=== PATIENT | female | born 1955 | race Caucasian/White ===

== ENCOUNTER 2017-07-13 08:52 | Inpatient (IN) | payer SELFPAY ==
[2017-07-13] MEDS ORDERED: DEXAMETHASONE 4 MG/ML VIAL IVP ONE (08:59)
[2017-07-13] MEDS ORDERED: ceFAZolin 2 GM/SWFI 2 GM/20 ML SYR IVP ONE ×2 (08:59→19:00)
[2017-07-13] MEDS ORDERED: ONDANSETRON 4 MG/2 ML VIAL IVP ONE (08:59)
[2017-07-13] MEDS ORDERED: LIDOCAINE 1% 2 ML INJ ID PRN (09:00)
[2017-07-13] MEDS ORDERED: LR 1,000 ML IV ONE (09:00)
[2017-07-13] MEDS ORDERED: BACITRACIN 50,000 UNITS/10 ML SYR IRR ONE (09:07)
[2017-07-13] MEDS ORDERED: THROMBIN (BOVINE) 20,000 UNIT VIAL TP ONE (09:07)
[2017-07-13] MEDS ORDERED: BUPIVACAINE 0.5% 30 ML SDV ONE (09:07)
[2017-07-13] MEDS ORDERED: CHLORHEXIDINE GLUC HIBICLENS 118 ML BTL TP ONE (09:09)
--- NOTE | 2017-07-13 10:05 | PDHPUP ---
History & Physical Update H&P update statement: This history and physical update is based on an assessment of the patient which was completed after admission or registration (within 24 hours), but prior to the surgery/procedure. H&P update: H&P reviewed & patient examined, no change in patient's condition since H&P completed (I met with the patient this morning and reviewed with her and her the risks and benefits of surgery, including permanent potential neurologic deficits, inability to resect the lesion fully, etc. All questions answered.)
[2017-07-13] MEDS ORDERED: MIDAZOLAM 2 MG/2 ML VIAL IVP ONE (10:22)
--- NOTE | 2017-07-13 10:23 | PDANEPAE ---
ANE Past Medical History - Cardiovascular History Hx Hypertension: No Hx Arrhythmias: No Hx Chest Pain: No Hx Coronary Artery / Peripheral Vascular Disease: No Hx CHF / Valvular Disease: No Hx Palpitations: No - Pulmonary History Hx COPD: No Hx Asthma/Reactive Airway Disease: No Hx Recent Upper Respiratory Infection: No Hx Oxygen in Use at Home: No Hx Sleep Apnea: No Sleep Apnea Screening Result - Last Documented: Negative - Neurologic History Hx Cerebrovascular Accident: No Hx Seizures: No Hx Dementia: No - Endocrine History Hx Diabetes: No - Renal History Hx Renal Disorders: No - Liver History Hx Hepatic Disorders: No - Neurological & Psychiatric Hx Hx Neurological and Psychiatric Disorders: Yes Neurological / Psychiatric History Comment: 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 wisdom teeth age 21 ANE Review of Systems Review of Systems: - Exercise capacity Exercise capacity: >=4 METS METS (RN): 4 METS ANE Patient History - Allergies Allergies/Adverse Reactions: aspirin Allergy (Verified 06/18/17 10:12) Other-Enter Comments - Home Medications Home Medications: Herbals/Supplements -Info Only 1 ea PO DAILY 06/11/17 [Last Taken Unknown] - NPO status NPO Since - Liquids (Date): 07/13/17 NPO Since - Liquids (Time): 07:15 NPO Since - Solids (Date): 07/12/17 NPO Since - Solids (Time): 19:30 - Anes Hx Anes Hx: no prior problems - Smoking Hx Smoking Status: Never smoked ANE Labs/Vital Signs - Vital Signs Blood Pressure: 146/91 Heart Rate: 81 Respiratory Rate: 16 O2 Sat (%): 96 Height: 165.1 cm Weight: 83.007 kg ANE Physical Exam - Airway Neck exam: FROM Mallampati Score: Class 2 Mouth exam: normal dental/mouth exam - Pulmonary Pulmonary: no respiratory distress, no rales or rhonchi, clear to auscultation - Cardiovascular Cardiovascular: regular rate and rhythym, no murmur, rub, or gallop - ASA Status ASA Status: II ANE Anesthesia Plan Anesthesia Plan: general endotracheal anesthesia
[2017-07-13] MEDS ORDERED: DEXMEDETOMIDINE/NS 4MCG/ML 50 ML BTL IV ONE ×2 (10:36→15:13)
[2017-07-13] MEDS ORDERED: PROPOFOL 200 MG/20 ML VIAL ONE (10:40)
[2017-07-13] MEDS ORDERED: KETAMINE 100 MG/10 ML SYR ONE (10:40)
[2017-07-13] MEDS ORDERED: ONDANSETRON 4 MG/2 ML VIAL ONE (10:41)
[2017-07-13] MEDS ORDERED: LIDOCAINE 2% 5 ML SDV ONE (10:41)
[2017-07-13] MEDS ORDERED: SUCCINYLCHOLINE CHLORIDE*ANESTHESIA ONLY*200 MG/10 ML SYR IVP ONE (10:41)
[2017-07-13] MEDS ORDERED: DEXAMETHASONE 4 MG/ML VIAL ONE (10:41)
[2017-07-13] MEDS ORDERED: BUPIVACAINE 0.25% 270 ML in PUMP SET 1 EA NB SCH (10:45)
[2017-07-13] MEDS ORDERED: BUPIVACAINE 0.25% 30 ML SDV ONE (10:55)
[2017-07-13] MEDS ORDERED: SURGIFLO MATRIX KIT WITH THROMBIN TP ONE (12:35)
[2017-07-13] MEDS ORDERED: diphenhydrAMINE 25 MG CAP PO PRN (12:58)
[2017-07-13] MEDS ORDERED: BISACODYL 10 MG SUPP PR PRN (12:58)
[2017-07-13] MEDS ORDERED: MAGNESIUM HYDROXIDE 30 ML UDCUP PO PRN (12:58)
[2017-07-13] MEDS ORDERED: LACTULOSE 20 GM/30 ML UDCUP PO PRN (12:58)
[2017-07-13] MEDS ORDERED: oxyCODONE IR 5 MG TAB PO PRN (13:02)
[2017-07-13] MEDS ORDERED: ceFAZolin 2 GM/DEXTROSE 100 ML IV SCH (14:00)
[2017-07-13] MEDS ORDERED: MEPERIDINE 25 MG/ML SYR IVP PRN (16:33)
[2017-07-13] MEDS ORDERED: PROMETHAZINE HCL 25 MG/ML INJ IVP PRN (16:33)
[2017-07-13] MEDS ORDERED: NALOXONE HCL 0.4 MG/ML INJ IVP PRN (16:33)
[2017-07-13] MEDS ORDERED: LR 500 ML IV PRN (16:33)
[2017-07-13] MEDS ORDERED: PHENYLEPHRINE HCL 100 MCG/ML SYR IVP PRN (16:33)
[2017-07-13] MEDS ORDERED: OXYCODONE/APAP 5/325 TAB PO PRN (16:33)
[2017-07-13] MEDS ORDERED: ONDANSETRON 4 MG/2 ML VIAL IVP PRN (16:33)
[2017-07-13] MEDS ORDERED: fentaNYL 100 MCG/2 ML INJ IVP PRN (16:33)
--- NOTE | 2017-07-13 17:15 | POSTANESTH ---
Post Anesthetic Evaluation Cardiovascular Status: Normal, Stable, Similar to Pre-Op Cond Respiratory Status: Normal, Stable, Similar to Pre-op Cond. Level of Consciousness/Mental Status: Can Participate in Eval, Moderately Sleepy Pain Control: Adequate, Prn Tx Ordered Nausea/Vomiting Control: Adequate, Prn Tx Ordered Complications Possibly Related to Anesthesia: None Noted
--- NOTE | 2017-07-13 17:19 | POSTOPPROG ---
Post Op Note Date of Operation: 07/13/17 Surgeon: Surinder Rodriguez Sales Support Associate: Dr Horan Anesthesiologist: Dr Huerta Anesthesia: GET(General Endotracheal) Pre-op Diagnosis: left S1 tumor Post-op Diagnosis: same Procedure: left S1 tumor open biopsy, decompression and left S1 foraminotomy Findings: per imaging Inf/Abcess present in the surg proc area at time of surgery?: No EBL: 100-500 Complications: small dural tear on the nerve root - repaired primarily Specimen(s): left S1 tumor was sent to Pathology for frozen and permanent
--- NOTE | 2017-07-13 17:20 | POSTOPPROG ---
Post Op Note Date of Operation: 07/13/17 Surgeon: Alexandru Horan (, FACS) Caustic Preparer: Surinder Rodriguez MD Anesthesiologist: Sterling Huerta MD Anesthesia: GET(General Endotracheal) Pre-op Diagnosis: S1 nerve sheath tumor Post-op Diagnosis: same Procedure: retroperitoneal Findings: large tumor arising from the S1 nerve sheath Inf/Abcess present in the surg proc area at time of surgery?: No EBL: 100-500 (400ml) Specimen(s): nerve sheath tumor
--- NOTE | 2017-07-13 17:23 | NEUSURGPN ---
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 and debulking with foraminotomy Subjective: no pain Objective: intact sensation to LE Bilaterally intact motor exam to LE bilaterally awake and alert Neuro Check Frequency: q4 hours Urinary Catheter in Place: Yes Urinary Catheter Indication: Surgical Requirement (patient to lie flat because of CSF leak) - Physician Patient Seen by : Michael Neurosurgery Physical Exam - Vitals, I&O, Labs I and O 07/12/17 07/13/17 07/14/17 05:59 05:59 05:59 Weight 83.007 kg Vital Signs Temp Pulse Resp BP Pulse Ox 36.8 C 81 16 146/91 H 96 07/13/17 09:19 07/13/17 10:23 07/13/17 10:23 07/13/17 10:23 07/13/17 10:23 ICD10 Worksheet Patient Problems: Problems Problem Status Onset 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
[2017-07-13] MEDS: ACETAMINOPHEN 500 MG TAB PO SCH ×2 (18:28→22:01)
[2017-07-13] MEDS: LR 1,000 ML IV SCH (18:36)
--- NOTE | 2017-07-13 19:16 | GOP ---
[f rep st] OPERATIVE REPORT DATE OF OPERATION: 07/13/2017 SURGEON: Surinder Rodriguez MD CO-SURGEON: Alexandru Horan MD COMPLICATIONS: Small dural tear was achieved on the S1 nerve root which was closed primarily with a 6-0 Prolene suture. PREOPERATIVE DIAGNOSIS: 1. 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 POSTOPERATIVE DIAGNOSIS: 1. 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 PROCEDURE PERFORMED: 1. Anterior retroperitoneal open biopsy of debulking of pre-sacral/sacral tumor. 2. Left-sided partial sacral bone resection with S1 ventral foraminotomy and nerve root decompression. 3. Use of intraoperative neuromonitoring. 4. Use of the operating microscope. FINDINGS: per imaging SPECIMENS: A frozen specimen was obtained from the lesion and additional tumor was sent to Pathology for permanent analysis. INDICATIONS: The patient is a 61-year-old woman who unfortunately has been suffering from left leg symptomatology. She had undergone fairly extensive OB/ HALL CLEANER workup and was found to have a fairly large left-sided tumor extending into the left S1 foramen and ventrally along the pre-sacral space. After discussion of risks, benefits, and treatment alternatives, we decided to proceed forth with surgery as described above. DESCRIPTION OF PROCEDURE: Patient was brought to the operating theater and underwent general endotracheal anesthesia without complications. She had Venodynes, AGA hose, and the appropriate lines placed by Anesthesia. Her arms were extended on the sides and the abdomen prepped and draped in the usual sterile surgical fashion. A time-out was completed per protocol and the patient received antibiotics within [address] Horan and his team will then dictate in a separate op report the anterior abdominal approach in a retroperitoneal manner to the left-sided tumor. Once the tumor was exposed, our team was called into the field. At this point, we were able to identify the lesion extending out from the ventral aspect of the left-sided S1 foramen and into the pre-sacral space. We were able to identify the L5 nerve laterally, as well as the iliav vein, which was tethered to the lateral aspect of the tumor and mass capsule. We used intraoperative neuromonitoring with stimulation to identify any active motor potentials and EMGs around the tumor capsule. During active stimulation, we did not notice any active stimulation of the lumbro-sacral plexus circumferentially. Using the lexis on the drill bit and Kerrison punches, we dissected out the tumor proximally into the sacrum with partial sacral bone resection and enlarging ventral foraminotomy. At this point, we verified the lack of stimulation with the neuromonitoring probe and then incised the sheath of the lesion on the ventral aspect where there was no active nerve stimulation or response. We dissected through several layers with the 11-blade until we were able to identify a plane around the tumor. We obtained a small piece of the tumor and sent it off for a frozen specimen. The microscope was brought into the field to assist with microscopic dissection and to maintain illumination and magnification. Using very careful microsurgical technique, we were able to circumferentially dissect the tumor from the capsule. Because of its shear size, however,we had to debulk the center of the tumor from the inside to reduce its size and pull the capsule away from the surrounding tissues. We followed the tumor proximally into the S1 foramen. We identified some nerve fascicles on the later and posterior wall of the tumor capsule that we preserved. The tumor appeared to be tethered to the S1 nerve, which was posterior and lateral to the tumor mass itself. While resecting the tumor, a small cut was made in the dural wall of the nerve that we had to close with a small 6-0 Prolene suture as best we could. There continued to be a very small amount of CSF still emanating from the repair. I did not feel we could place any more sutures because the dura at this point was very friable. One we truncated the tumor circumferentially, we placed a small piece of the capsule of the lesion around the nerve itself as well as the retroperitoneal fat to fill the space from the resection cavity. A small amount of DuraSeal was then placed over the nerve and tissues. There were no noted changes on neuromonitoring throughout this portion of the procedure. Please note te tumor resection was extremely difficulty and tedious, as well as challenging because of its size and proximity to the surrounding nerves and vessels. This necessitated the use of both specialists, both Dr Horan and myself , to work together to remove giovany mass carefully and without any complications. This surgery was greater then 50% more difficult than the average case because of these factors. At this point, Dr. Horan and his team will dictate in a separate op report the abdominal closure. Please note, the neuromonitoring was stable by the end of the case. /[id number]/MODL MTDD
[2017-07-13] MEDS: ONDANSETRON 4 MG/2 ML VIAL IVP PRN (20:18)
--- NOTE | 2017-07-13 20:22 | GOP ---
[f rep st] OPERATIVE REPORT DATE OF OPERATION: 07/13/2017 CO-SURGEONS: Alexandru Horan MD, FACS and Surinder Rodriguez MD (The technical difficulty and risk of this procedure required the full attention and skill of two surgeons to accomplish in a safe and timely fashion) ANESTHESIA: General endotracheal. ANESTHESIOLOGIST: Alexandru Huerta MD PREOPERATIVE DIAGNOSIS: S1 nerve sheath tumor. POSTOPERATIVE DIAGNOSIS: S1 nerve sheath tumor. PROCEDURE PERFORMED: Retroperitoneal exposure of anterior spine and deep pelvis for resection of nerve sheath tumor. FINDINGS: Uncomplicated exposure of the S1 nerve sheath tumor measuring approximately 4 x 4 x 4-1/2 cm, medial to the iliac vessels and posterior to the course of the ureter. Tumor excision to be dictated by Dr. Rodriguez. DESCRIPTION OF PROCEDURE: After informed consent was obtained, the patient was brought to the operating room and placed under general anesthesia. Hyde catheter was placed. Neuromonitoring leads were placed using sterile technique. The patient was then prepped and draped in the usual sterile fashion. Before proceeding, a time-out and identification of the patient was performed. Neuro-monitoring was performed throughout the procedure. 0.25% Marcaine was used to establish a regional field block, injecting approximately 20 cc of 0.25% Marcaine into the lateral abdominal wall on the left side at the level of the external oblique fascia. Subsequently, a curvilinear incision was made from just above the pubis curving anterior to the superior iliac crest up to the umbilicus. Dissection was carried through skin and subcutaneous tissues. The rectus sheath was incised where the external oblique fascia joined and a plane of dissection was entered in the retroperitoneum below the umbilicus. Dissection was carried out cephalad and the fascia was liberated from the posterior rectus sheath closer to the umbilicus allowing further mobilization of the retroperitoneal structures. The retroperitoneal fat plane was then followed into the pelvis and using combination of blunt dissection and Harmonic Scalpel, the small vessels were divided as they were encountered. The dissection revealed the course of the ureter which was encircled with a vessel loop and carefully protected in the course of dissection. The Omni-Tract retractor was used to facilitate exposure. As the retroperitoneal structures were mobilized, the pelvic brim was identified and the S1 nerve sheath tumor became palpable. The retroperitoneal fat was bluntly dissected away from the surface of the nerve sheath tumor and along the medial aspect the internal iliac vein was closely adherent to the outer capsule. This was slowly and carefully dissected away from the nerve sheath tumor and immediately posterior to this was the L5 nerve root. These structures were carefully identified and preserved in the course of dissection. Dr. Rodriguez then performed the extirpation of the nerve sheath tumor, to be dictated as a separate operative procedure note. A small dural leak was repaired with 6-0 Prolene suture. The wound was irrigated and aspirated. Subsequntly, the Omni-tract retractor was removed and the retroperitoneal fat was allowed to fill the expanded S1 lamina and cover the remaining S1 nerve root. Hemostasis appeared secure. All retractors were removed. The retroperitoneum lay nicely over the operative field. The ureter was returned to its anatomic position. The medial edge of the external oblique and internal oblique fascias were approximated to the rectus border in 2 layers with 2-0 Vicryl and 0 PDS suture. Subcutaneous tissues were closed with 2-0 Vicryl sutures. Skin was closed with 3-0 Monocryl suture in a subcuticular fashion. Bilateral On-Q catheters were tunneled into the subfascial plane and secured to the skin with Dermabond. These were charged with 0.25% Marcaine and to be attached to a continuous infusion pump at 2+2 mL/h. Sterile dressings were applied. The patient was returned extubated to the recovery room in satisfactory condition. Needle, sponge, and instrument counts were correct. Estimated blood loss for the entire case 400 mL as estimated by the suction canister. Complications, none. CO-SURGEON: Surinder Rodriguez MD /[id number]/MODL MTDD
[2017-07-13] MEDS: SENNOSIDES/DOCUSATE SODIUM TAB PO SCH (22:01)
[2017-07-13] MEDS: FAMOTIDINE 20 MG TAB PO SCH (22:01)
[2017-07-14] MEDS: LR 1,000 ML IV SCH (02:17)
[2017-07-14 04:57] LABS: % IMMATURE GRANULYOCYTES 0.5 % (0.0-1.1); ABSOLUTE IMMATURE GRANULOCYTES 0.06 10^3/uL (0.00-0.10); ADD DIFF? NO; ADD MORPH? NO; ADD SCAN? NO; ATYPICAL LYMPHOCYTE FLAG 0 (0-99); FRAGMENT RBC FLAG 0 (0-99); HEMOGLOBIN 12.1 g/dL (12.6-16.3); LEFT SHIFT FLG 0 (0-99); LIPEMIA HEMOLYSIS FLAG 90 (0-99); MEAN CELL HEMOGLOBIN 32.1 pg (27.9-34.1); MEAN CELL HEMOGLOBIN CONCENTR. 34.6 g/dL (32.4-36.7); MEAN CELL VOLUME 92.8 fL (81.5-99.8); MEAN PLATELET VOLUME 8.4 fL (8.7-11.7); PLATELET CLUMPS FLAG 0 (0-99); PLATELET COUNT 281 10^3/uL (150-400); RED BLOOD CELL COUNT 3.77 10^6/uL (4.18-5.33); RED CELL DISTRIBUTION WIDTH 13.2 % (11.5-15.2)
[2017-07-14 05:06] LABS: ANION GAP 7 mEq/L (8-16); CALCIUM 8.8 mg/dL (8.5-10.4); CARBON DIOXIDE 26 mEq/l (22-31); CHLORIDE 104 mEq/L (97-110); CREATININE 0.7 mg/dL (0.6-1.0); GLOMERULAR FILTRATION RATE > 60; GLUCOSE 113 mg/dL (70-100); POTASSIUM 4.3 mEq/L (3.5-5.2); SODIUM 137 mEq/L (134-144)
[2017-07-14] MEDS: ACETAMINOPHEN 500 MG TAB PO SCH ×3 (05:58→21:44)
[2017-07-14] MEDS: SENNOSIDES/DOCUSATE SODIUM TAB PO SCH ×2 (09:12→21:45)
[2017-07-14] MEDS: FAMOTIDINE 20 MG TAB PO SCH ×2 (09:12→21:44)
--- NOTE | 2017-07-14 09:19 | SOAPPROG ---
SOAP Progress Note Assessment/Plan: Assessment: s/p left S1 schwanomma excision/retroperitoneal approach doing well post op Plan: advance diet/continue bedrest until Sunday07/14/17 09:15 Subjective: denies significant pain Objective: Vital Signs Temp Pulse Resp BP Pulse Ox 36.8 C 92 14 127/78 H 99 07/14/17 04:19 07/14/17 04:19 07/14/17 04:19 07/14/17 04:19 07/14/17 04:19 Laboratory Results 07/14/17 04:45 07/14/17 04:45 07/13/17 07/14/17 07/15/17 05:59 05:59 05:59 Intake Total 1700 Output Total 1000 Balance 700 - Pending Discharge Pending Discharge Within 24 Hours: No Pending Discharge Within 48 Hours: No Physical Exam - Physical Exam General Appearance: no apparent distress Respiratory: lungs clear, decreased breath sounds Cardiac/Chest: regular rate, rhythm Abdomen: normal bowel sounds, non-tender, soft, other (dressing dry/intact, On- Q functioning well) Neuro/Psych: alert, normal mood/affect, oriented x 3 ICD10 Worksheet Patient Problems: Problems Problem Status Onset 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
--- NOTE | 2017-07-14 11:00 | NEUSURGPN ---
Date of Surgery: 07/13/17 Post Op Day: 1 Assessment/Plan: 61 yo female s/p anterior biopsy of S1 nerve sheath tumor - neuro stable - HOB flat till Sunday, then will raise HOB by 10 degrees every hour starting at 5am - pain control - postop MRI pending - path pending Subjective: Pain controlled, doing well this morning. No leg symptoms. No headache. Objective: Awake. Alert. Muscle strength full at 5/5 Sensation intact Incision with dressing Catheter Insertion Date: 07/13/17 Neurosurgery Physical Exam - Vitals, I&O, Labs I and O 07/13/17 07/14/17 07/15/17 05:59 05:59 05:59 Intake Total 1700 Output Total 1000 500 Balance 700 -500 Weight 83.007 kg Intake: Oral (ml) 500 IV Infused (ml) 1200 Lr 1,000 ml @ 100 mls/hr 1200 IV CONT APRIL Rx#: [id number] Output: Urine (ml) 600 500 Catheter 600 500 Estimated Blood Loss (ml) 400 Other: Intake Quantity Yes Sufficient Vital Signs Temp Pulse Resp BP Pulse Ox 36.6 C 80 16 126/71 H 94 07/14/17 09:16 07/14/17 09:16 07/14/17 09:16 07/14/17 09:16 07/14/17 09:16 Laboratory Results 07/14/17 04:45 07/14/17 04:45 ICD10 Worksheet Patient Problems: Problems Problem Status Onset 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
--- NOTE | 2017-07-14 11:06 | ASMTCMCOM ---
CM Note CM Note Notes: Reviewed chart and discussed with RN. Pt currently on flat bedrest til Sunday. Pt lives at home w/. CM will reassess on Sunday. Date Signed: 07/14/2017 11:05 AM Electronically Signed By:Tasia Pena RN
[2017-07-14] MEDS ORDERED: GADOBUTROL 10 ML VIAL IVP ONE (11:58)
[2017-07-14] MEDS: ENOXAPARIN 40 MG/0.4 ML SYR SC SCH (16:32)
[2017-07-15] MEDS: ACETAMINOPHEN 500 MG TAB PO SCH ×3 (05:11→20:49)
--- NOTE | 2017-07-15 07:34 | SOAPPROG ---
SOAP Progress Note Assessment/Plan: Assessment: s/p left S1 schwanomma excision/retroperitoneal approach doing well post op persistent S1 sensory symptoms Plan: trial of low does Gabapentin continue bedrest until Sunday07/14/17 09:15 07/15/17 07:35 Subjective: denies incisional pain/pain right posterior thigh tolerated diet advance Objective: Vital Signs Temp Pulse Resp BP Pulse Ox 36.9 C 83 14 134/84 H 97 07/15/17 04:00 07/15/17 04:00 07/15/17 04:00 07/15/17 04:00 07/15/17 04:00 Laboratory Results 07/14/17 04:45 07/14/17 04:45 07/14/17 07/15/17 07/16/17 05:59 05:59 05:59 Intake Total 1700 Output Total 1000 3425 Balance 700 -3425 MRI reviewed/post op fluid collection/residual tissue consistent with nerve sheath - Pending Discharge Pending Discharge Within 24 Hours: No Pending Discharge Within 48 Hours: No Physical Exam - Physical Exam General Appearance: no apparent distress Respiratory: normal breath sounds Cardiac/Chest: regular rate, rhythm Abdomen: normal bowel sounds, non-tender, soft, other (dressing/On-Q intact) ICD10 Worksheet Patient Problems: Problems Problem Status Onset 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
--- NOTE | 2017-07-15 09:26 | NEUSURGPN ---
Date of Surgery: 07/13/17 Post Op Day: 2 Assessment/Plan: 61 yo female s/p anterior biopsy of S1 nerve sheath tumor - neuro stable - HOB flat till Sunday, then will raise HOB by 10 degrees every hour starting at 5am - pain control, neurontin has been started - postop MRI completed- shows good resection - path pending Subjective: Having left gluteal pain. Objective: Awake. Alert. PERRL. EOMI Facial expression symmetrical Muscle strength full at 5/5 Sensation intact Catheter Insertion Date: 07/13/17 Neurosurgery Physical Exam - Vitals, I&O, Labs I and O 07/14/17 07/15/17 07/16/17 05:59 05:59 05:59 Intake Total 1700 Output Total 1000 3425 Balance 700 -3425 Weight 83.007 kg Intake: Oral (ml) 500 IV Infused (ml) 1200 Lr 1,000 ml @ 100 mls/hr 1200 IV CONT APRIL Rx#: [id number] Output: Urine (ml) 600 3425 Catheter 600 3425 Estimated Blood Loss (ml) 400 Other: Intake Quantity Yes Yes Sufficient Vital Signs Temp Pulse Resp BP Pulse Ox 36.8 C 84 16 132/87 H 97 07/15/17 08:00 07/15/17 08:00 07/15/17 08:00 07/15/17 08:00 07/15/17 08:00 Laboratory Results 07/14/17 04:45 07/14/17 04:45 ICD10 Worksheet Patient Problems: Problems Problem Status Onset 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
[2017-07-15] MEDS: GABAPENTIN 100 MG CAP PO SCH ×3 (10:30→20:49)
[2017-07-15] MEDS: SENNOSIDES/DOCUSATE SODIUM TAB PO SCH ×2 (10:31→20:49)
[2017-07-15] MEDS: ENOXAPARIN 40 MG/0.4 ML SYR SC SCH (10:31)
[2017-07-15] MEDS: FAMOTIDINE 20 MG TAB PO SCH ×2 (10:31→20:49)
[2017-07-15] MEDS: ONDANSETRON DISINTEGRATING 4 MG TAB PO PRN (14:12)
[2017-07-15] MEDS ORDERED: BUPIVACAINE 0.25% 270 ML in PUMP SET 1 EA NB SCH (22:00)
[2017-07-16 04:34] VITALS: RESP 16
--- NOTE | 2017-07-16 06:16 | SOAPPROG ---
SOAP Progress Note Assessment/Plan: Assessment: s/p left S1 schwanomma excision/retroperitoneal approach doing well post op Plan: continue On-Q w/ .25% bupivicaine continue bedrest until Sunday07/14/17 09:15 07/15/17 07:35 07/16/17 06:16 Subjective: resting comfortably/no flatus yet/mild headache Objective: Vital Signs Temp Pulse Resp BP Pulse Ox 36.9 C 83 16 123/84 H 93 07/16/17 04:00 07/16/17 04:00 07/16/17 04:00 07/16/17 04:00 07/16/17 04:00 Laboratory Results 07/14/17 04:45 07/14/17 04:45 07/15/17 07/16/17 07/17/17 05:59 05:59 05:59 Intake Total 350 Output Total 3425 2100 Balance -3425 -1750 Physical Exam - Physical Exam General Appearance: no apparent distress Respiratory: lungs clear Cardiac/Chest: regular rate, rhythm Abdomen: normal bowel sounds, soft, distended, other (dressing dry and intact/On -Q catheter re-inforced) ICD10 Worksheet Patient Problems: Problems Problem Status Onset 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
[2017-07-16] MEDS: ACETAMINOPHEN 500 MG TAB PO SCH ×3 (06:29→21:57)
[2017-07-16] MEDS: FAMOTIDINE 20 MG TAB PO SCH ×2 (09:01→21:57)
[2017-07-16] MEDS: ENOXAPARIN 40 MG/0.4 ML SYR SC SCH (09:01)
[2017-07-16] MEDS: GABAPENTIN 100 MG CAP PO SCH ×3 (09:01→21:57)
[2017-07-16] MEDS: SENNOSIDES/DOCUSATE SODIUM TAB PO SCH ×2 (09:01→23:45)
[2017-07-16] MEDS: ONDANSETRON 4 MG/2 ML VIAL IVP PRN (10:52)
--- NOTE | 2017-07-16 11:31 | NEUSURGPN ---
<Allan-BarbaraMelanie - Last Filed: 07/16/17 11:22> Assessment/Plan: Assessment/Plan: 61 yo female s/p anterior biopsy of S1 nerve sheath tumor - neuro stable- continues to have left hip pain that was there prior to surgery as well. managed well with ice -No BM yet, but having gas- continue bowel regimen - HOB flat till Sunday, then will raise HOB by 10 degrees every hour starting at 5am - pain control, neurontin has been started - postop MRI completed- shows good resection - path pending Subjective: Having left gluteal pain that is somewhat relieved with ice. Dressing changed by Dr. Horan this morning on abdomen and has no current incisional pain. Objective: Awake. Alert. PERRL. EOMI Facial expression symmetrical Muscle strength full at 5/5 Sensation intact incision dressed and is clean and dry Catheter Insertion Date: 07/13/17 - Physician Discussed Patient with Dr.: Rodriguez Neurosurgery Physical Exam - Vitals, I&O, Labs I and O 07/15/17 07/16/17 07/17/17 05:59 05:59 05:59 Intake Total 350 Output Total 3425 2100 Balance -3425 -1750 Intake: Oral (ml) 350 Output: Urine (ml) 3425 2100 Catheter 3425 2100 Other: Intake Quantity Yes Yes Sufficient Number of Voids Catheter 1 Vital Signs Temp Pulse Resp BP Pulse Ox 37.1 C 78 16 122/82 H 94 07/16/17 07:22 07/16/17 07:22 07/16/17 07:22 07/16/17 07:22 07/16/17 07:22 Laboratory Results 07/14/17 04:45 07/14/17 04:45 ICD10 Worksheet Patient Problems: Problems Problem Status Onset 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 She is dong well with no new leg symptoms. Will start to raise HOB tomorrow morning. All questions answered and she was pleased with her progress. Awaiting final Pathology. 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
[2017-07-16] MEDS: POLYETHYLENE GLYCOL 3350 17 GM PKT PO PRN (14:47)
[2017-07-16] MEDS: ONDANSETRON DISINTEGRATING 4 MG TAB PO PRN (19:51)
[2017-07-17] MEDS: ACETAMINOPHEN 500 MG TAB PO SCH ×3 (05:06→21:32)
--- NOTE | 2017-07-17 06:56 | SOAPPROG ---
SOAP Progress Note Assessment/Plan: Assessment: s/p left S1 schwanomma excision/retroperitoneal approach doing well post op Plan: continue On-Q w/ .25% bupivicaine activity per Neurosurgery 07/14/17 09:15 07/15/17 07:35 07/16/17 06:16 07/17/17 06:55 Subjective: emesis x 1 yesterday/loose stool likely as a result of aggressive bowel protocol feels better this AM tolerating HOB at 20degrees Objective: Vital Signs Temp Pulse Resp BP Pulse Ox 37.2 C 80 16 131/95 H 90 L 07/17/17 04:50 07/17/17 04:50 07/17/17 04:50 07/17/17 04:50 07/17/17 04:50 Laboratory Results 07/14/17 04:45 07/14/17 04:45 07/16/17 07/17/17 07/18/17 05:59 05:59 05:59 Intake Total 350 1200 Output Total 2100 800 Balance -1750 400 Physical Exam - Physical Exam General Appearance: no apparent distress Abdomen: normal bowel sounds, non-tender, soft, other (less distended/dressings dry and intact) ICD10 Worksheet Patient Problems: Problems Problem Status Onset 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
--- NOTE | 2017-07-17 07:49 | NEUSURGPN ---
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 managed well with ice -Patient concerned with aggressive bowel protocol yesterday. Discussed that when discharge can try a more gentle stool softner such as Colace. Want her to avoid straining for a BM for at least 2 weeks post op -Tolerating raising HOB this morning, once maxes out bed elevation okay to sit in chair and then ambulate with assistance today -pain control, neurontin has been started -postop MRI completed- shows good resection -path pending. -Discussed with Dr. Rodriguez -DIspo planning for the next day or so per general surgery Subjective: left sciatica like pain, was typically worse with sitting prior to surgery. Objective: NAD A&Ox3 MAEx4 5/5 and equal in BUE and BLE> Incisional dressing c/d/i Catheter Insertion Date: 07/13/17 - Physician Discussed Patient with Dr.: Rodriguez Neurosurgery Physical Exam - Vitals, I&O, Labs I and O 07/16/17 07/17/17 07/18/17 05:59 05:59 05:59 Intake Total 350 1200 Output Total 2100 800 Balance -1750 400 Intake: Oral (ml) 350 1200 Output: Urine (ml) 2100 800 Catheter 2100 800 Other: Intake Quantity Yes Sufficient Number of Voids Catheter 1 Number of Stools Catheter 1 Incontinence 1 Vital Signs Temp Pulse Resp BP Pulse Ox 37.2 C 80 16 131/95 H 90 L 07/17/17 04:50 07/17/17 04:50 07/17/17 04:50 07/17/17 04:50 07/17/17 04:50 Laboratory Results 07/14/17 04:45 07/14/17 04:45 ICD10 Worksheet Patient Problems: Problems Problem Status Onset 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
[2017-07-17] MEDS: GABAPENTIN 100 MG CAP PO SCH ×3 (09:22→21:33)
[2017-07-17] MEDS: FAMOTIDINE 20 MG TAB PO SCH ×2 (09:22→21:33)
[2017-07-17] MEDS: ENOXAPARIN 40 MG/0.4 ML SYR SC SCH (09:22)
[2017-07-17] MEDS: SENNOSIDES/DOCUSATE SODIUM TAB PO SCH ×2 (09:22→21:34)
--- NOTE | 2017-07-17 13:52 | ASMTCMCOM ---
CM Note CM Note Notes: PT/OT evals still pending as pt on bed rest until today. Of note: no payer source reflected on face sheet at this time. CM to follow. Date Signed: 07/17/2017 01:52 PM Electronically Signed By:MAXIMINO Carmen
[2017-07-17] MEDS: POLYETHYLENE GLYCOL 3350 17 GM PKT PO PRN (15:52)
[2017-07-18] MEDS: ACETAMINOPHEN 500 MG TAB PO SCH (06:01)
[2017-07-18 07:58] VITALS: BP 125/89; PULSE 99; TEMP 97.7; O2SAT 94
--- NOTE | 2017-07-18 08:28 | NEUSURGPN ---
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 - Discussed with Dr. Rodriguez - lawanda for discharge from neurosurgery standpoint Subjective: Sitting in bedside chair. Having left hip/gluteal pain. Awoke this morning with left toe and lateral calf numbness, now improving. Objective: Awake. Alert. PERRL. EOMI Facial expression symmetrical Muscle strength full at 5/5 Sensation intact Catheter Insertion Date: 07/13/17 - Physician Discussed Patient with : Michael Neurosurgery Physical Exam - Vitals, I&O, Labs I and O 07/17/17 07/18/17 07/19/17 05:59 05:59 05:59 Intake Total 1200 400 Output Total 800 2700 Balance 400 -2300 Weight 83.007 kg Intake: Oral (ml) 1200 400 Output: Urine (ml) 800 2700 Catheter 800 2200 Toilet 500 Other: Number of Voids Toilet 3 Number of Stools Catheter 1 Incontinence 1 Vital Signs Temp Pulse Resp BP Pulse Ox 36.5 C 99 16 125/89 H 94 07/18/17 07:55 07/18/17 07:55 07/18/17 07:55 07/18/17 07:55 07/18/17 07:55 Laboratory Results 07/14/17 04:45 07/14/17 04:45 ICD10 Worksheet Patient Problems: Problems Problem Status Onset 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
[2017-07-18] MEDS: ENOXAPARIN 40 MG/0.4 ML SYR SC SCH (08:35)
[2017-07-18] MEDS: GABAPENTIN 100 MG CAP PO SCH (08:36)
[2017-07-18] MEDS: FAMOTIDINE 20 MG TAB PO SCH (08:36)
[2017-07-18] MEDS: SENNOSIDES/DOCUSATE SODIUM TAB PO SCH (09:31)
--- NOTE | 2017-07-18 11:02 | PDDCSUM ---
Discharge Summary Discharge Summary: #[id number] Discharge summary dictated S MD Aung, FACS
--- NOTE | 2017-07-18 11:44 | GDS ---
[f rep st] DISCHARGE SUMMARY DISCHARGE DIAGNOSES: 1. S1 nerve sheath tumor. 2. Chronic left lower extremity pain and numbness. PROCEDURE PERFORMED: On 07/13/2017, left retroperitoneal approach to the S1 nerve root with debulkin g of S1 nerve sheath tumor and foraminotomy. DISCHARGE MEDICATIONS: Tylenol 1000 mg p.o. q.8 hours, Benadryl 25 mg p.o. q.6 hours p.r.n., Pepcid 20 mg p.o. b.i.d., Neurontin 100 mg p.o. t.i.d., MiraLAX 17 g p.o. daily p.r.n., Senokot-S 1 p.o. b.i .d. p.r.n. HOSPITAL COURSE: For details of admission history and physical, please see dictated summary. Briefl y, the patient is a 61-year-old female who was admitted for elective resection of a 4.5 cm S1 nerve s zayda tumor. She underwent a mechanical bowel prep preoperatively, received perioperative antibiotic s, and on the day of surgery, underwent resection with operative time of approximately 5-1/2 hours. A small dural tear at the S1 nerve root was repaired intraoperatively, and the patient was kept at be drest postoperatively for the first 72 hours. She had mild headaches, had very little incisional gonzalo n, and an On-Q pump was continued throughout her hospital course. She only required narcotics in the first 8 hours after surgery, and thereafter only took Tylenol for pain control. Her neuropathic sym ptoms remained mostly unchanged other than some new numbness in the left small toe, and these symptom s were previously untreated. She was started on low-dose Neurontin 100 mg p.o. t.i.d., and this will be continued at the time of discharge. After the first 72 hours, she was mobilized. Physical Thera py assisted her with ambulation, her Hyde catheter was removed, and she was advanced in her diet. O n the day of discharge, she was afebrile, ambulatory, her incision healing well without sign of infec tion. Her On-Q catheter had run out in the night, and she had not required any additional pain medic marino subsequently. Condition at time of discharge satisfactory. Followup arranged in my office and with Dr. Rodriguez as a n outpatient. Copy requested to: Dr. Rodriguez /[id number]/MODL
--- NOTE | 2017-07-18 16:14 | ASDISCHSUM ---
Discharge Information Plan Status:Home with No Needs Medically Cleared to Leave: Discharge Date:07/18/2017 11:36 AM CM D/C Disposition:Home, Routine, Self-Care ADT D/C Disposition:Home, Routine, Self-Care Projected Discharge Date:07/18/2017 11:36 AM Transportation at D/C:Family Discharge Delay Reason: Follow-Up Date:07/18/2017 11:36 AM Discharge Slot: Final Diagnosis: Placement Information Patient Contact Information Contact Name:YASSINE Relationship: Address: Home Phone: City: [facility] Phone: [facility] Code: Email: Financial Information Financial Class:Self-Pay Primary Plan Desc:SELF PAY Primary Plan Number: Secondary Plan Desc: Secondary Plan Number: Assessment Information [facility] CM Progress Note CM Note CM Note Notes: Reviewed chart and discussed with RN. Pt currently on flat bedrest til Sunday. Pt lives at home w/. CM will reassess on Sunday. Date Signed: 07/14/2017 11:05 AM Electronically Signed By:Tasia Pena RN [facility] CM Progress Note CM Note CM Note Notes: PT/OT evals still pending as pt on bed rest until today. Of note: no payer source reflected on face sheet at this time. CM to follow. Date Signed: 07/17/2017 01:52 PM Electronically Signed By:MAXIMINO Carmen Intervention Information
== END 2017-07-18 11:36 | disposition home or self-care (01) | DRG 478 ==
LOC: F3E 08:52 → F3N 18:22
PROVIDERS: ADMIT Surgery; ATTEND Surgery
PROC: 4A1004G Monitoring of Central Nervous Electrical Activity, Intraoperative, Open Approach (ICD-10-PCS; principal; 2017-07-13 10:30)
PROC: 01B Peripheral Nervous System, Excision (ICD-10-PCS; principal; 2017-07-13 10:30)
PROC: 00Q20ZZ Repair Dura Mater, Open Approach (ICD-10-PCS; principal; 2017-07-13 10:30)
PROC: 0QB10ZX Excision of Sacrum, Open Approach, Diagnostic (ICD-10-PCS; principal; 2017-07-13 10:30)
DX: D36.10 Benign neoplasm of peripheral nerves and autonomic nervous system, unspecified (principal); G96.11 Dural tear; M54.18 Radiculopathy, sacral and sacrococcygeal region; G89.29 Other chronic pain
CPT/HCPCS: 97116-GP; 97161-GP; 97165-GO; 97530-GP; 97535-GO; A9585; J0330; J0690; J1100; J1650; J2250; J2370; J2405; J2704

== ENCOUNTER → 2018-08-05 | Outpatient (CLI) | payer OTHER ==
[~2018-08-05] MED LIST: GADOBUTROL 10 ML VIAL IVP ONE
== END ==
LOC: FIMAGING 08:59
PROVIDERS: ATTEND Physician Assistant
DX: D36.10 Benign neoplasm of peripheral nerves and autonomic nervous system, unspecified (principal); M53.87 Other specified dorsopathies, lumbosacral region; M43.17 Spondylolisthesis, lumbosacral region
CPT/HCPCS: A9585